=== PATIENT | female | born 1950 | race Two or more races ===

== ENCOUNTER 2023-11-03 18:20 | Emergency (ER) | payer OTHER ==
[~2023-11-03] VITALS: Ht 149.9 cm; Wt 69.4 kg
[2023-11-03] MEDS ORDERED: CAPTOPRIL50 MG PO (18:48)
[2023-11-03] MEDS ORDERED: hydrOXYzine PAMOATE 25 MG CAPSULE PO ONE (19:15)
== END 2023-11-03 19:26 | disposition home or self-care (01) ==
LOC: ER 18:20
DX: R00.2 Palpitations (principal); I11.9 Hypertensive heart disease without heart failure; E11.9 Type 2 diabetes mellitus without complications

== ENCOUNTER 2023-11-09 05:54 | Emergency (ER) | payer OTHER ==
[~2023-11-09] VITALS: Ht 149.9 cm; Wt 69.9 kg
[~2023-11-09 05:54] MED LIST: CAPTOPRIL50 MG PO
[2023-11-09] MEDS ORDERED: LACTULOSE 20 G/30 ML BLIST.PACK PO ONE (09:00)
== END 2023-11-09 09:31 | disposition left against medical advice (07) ==
LOC: ER 05:54
DX: K59.00 Constipation, unspecified (principal); I10 Essential (primary) hypertension

== ENCOUNTER 2023-11-13 22:46 | Emergency (ER) | payer OTHER ==
[~2023-11-13] VITALS: Ht 149.9 cm; Wt 69.4 kg
[2023-11-14] MEDS ORDERED: PROMETHAZINE HCL 50 MG/ML AMPUL IM STA (01:24)
[2023-11-14] MEDS ORDERED: cloNIDine HCL 0.2 MG TABLET PO STA (01:24)
[2023-11-14] MEDS ORDERED: FAMOTIDINE/PF 20 MG/2 ML VIAL IV PUSH STA (01:25)
[2023-11-14] MEDS ORDERED: HYOSCYAMINE SULFATE 0.125 MG TAB.SUBL SL STA (01:26)
[2023-11-14 01:46] LABS: HEMATOCRIT 38.8 % (36.0-45.00); HEMOGLOBIN 13.2 g/dL (12.0-15.00); MEAN CELL VOLUME 84.1 fL (80.00-100.00); MEAN CORPUSCULAR HEMOGLOBIN 28.6 pg (27.00-32.0); MEAN CORPUSCULAR HGB CONC 33.9 g/dl (32.0-36.0); PLATELET COUNT 340 K/uL (150-450); RED BLOOD COUNT 4.62 M/uL (4.00-6.00); RED CELL DISTRIBUTION WIDTH 15.6 % (11.5-14.5)
[2023-11-14 02:05] LABS: CALCIUM 9.3 mg/dL (8.5-10.1); CREATININE SERUM 0.72 mg/dL (0.55-1.02); GFR 78.96; POTASSIUM 3.75 mEq/L (3.5-5.1)
== END 2023-11-14 03:50 | disposition home or self-care (01) ==
LOC: ER 22:46
DX: K30 Functional dyspepsia (principal); I10 Essential (primary) hypertension; R11.10 Vomiting, unspecified
CPT/HCPCS: 36415; 96365; 96372; 99282; J2550; J3490

== ENCOUNTER → 2023-11-15 | Emergency (ER) | payer OTHER ==
[~2023-11-15] VITALS: Ht 149.9 cm; Wt 69.4 kg
== END | disposition left against medical advice (07) ==
LOC: ER 11:33
DX: Z53.21 Procedure and treatment not carried out due to patient leaving prior to being seen by health care provider (principal)